=== PATIENT | female | born 2000 | race Hispanic/Latino ===

== ENCOUNTER 2021-07-29 11:24 | Emergency (ER) | payer BC, MEDICAID ==
[~2021-07-29] VITALS: Ht 154.9 cm; Wt 57.6 kg
[2021-07-29 12:12] LABS: APPEARANCE,URINE TURBID (CLEAR); BILIRUBIN,URINE NEGATIVE (NEGATIVE); COLOR,URINE YELLOW (YELLOW); GLUCOSE, URINE (UA) NEGATIVE (NEGATIVE); KETONES,URINE NEGATIVE (NEGATIVE); LEUKOCYTE ESTERASE ,URINE MODERATE (NEGATIVE); NITRATE,URINE NEGATIVE (NEGATIVE); OCCULT BLOOD,URINE LARGE (NEGATIVE); PH,URINE 6.5 (5.0-8.0); PROTEIN,URINE 30 mg/dL (NEGATIVE); UROBILINOGEN,URINE 0.2 mg/dL (0.2-1.0)
[2021-07-29 12:22] LABS: HCG,QUAL RESULT NEGATIVE (NEGATIVE)
[2021-07-29] MEDS ORDERED: PHENAZOPYRIDINE HCL 200 MG TABLET PO ONE (12:30)
[2021-07-29] MEDS ORDERED: CEFTRIAXONE 1G VIAL IM ONE (12:30)
[2021-07-29] MEDS ORDERED: PHEN-847 PO (12:39)
[2021-07-29] MEDS ORDERED: CEPH500B PO (12:39)
[2021-07-29 12:54] LABS: BACTERIA,URINE Rare /HPF (None Seen); RBC,URINE >100 /HPF (0-1); SQUAMOUS EPITHELIAL CELL,UR Few /HPF (0-2); WBC,URINE >100 /HPF (0-1)
[2021-07-29] MEDS ORDERED: LIDOCAINE HCL-MPF 1% 2ML VIAL ONE (12:54)
[2021-07-29 14:04] VITALS: BP 106/71
== END 2021-07-29 14:07 | disposition home or self-care (01) ==
LOC: EDH 11:24
DX: N39.0 Urinary tract infection, site not specified (principal); J45.909 Unspecified asthma, uncomplicated
CPT/HCPCS: 81001; 81025; 87077; 87088; 87186; 96372; 99284; J0696; J3490